=== PATIENT | female | born 1945 | race Caucasian/White ===

== ENCOUNTER → 2017-08-12 | Outpatient (CLI) | payer MEDICARE ==
[~2017-08-12] MED LIST: ARIMIDEX; BENAZEPRIL HCL20 MG OR; CEPHALEXIN 250250 M1 OR; CIPROFLOXACIN500 M1 PO; ELAVIL OR; FELODIPINE 5 MG5 M1 OR; FLEXERIL PO; FLOMAX PO; FOSAMAX 70 MG T70 M1 OR; OMEPRAZOLE20 MG OR; PERCOCET 5-3251 EACH PO
--- NOTE | 2017-08-14 11:21 | PF ---
[address] [address] PULMONARY FUNCTION REPORT Name: DEIDRE PELAEZABEL Val Room: [facility]#: [id number] Admission: 08/12/17 Attend Phys: Melva Peter Discharge: Date of : 43 Report #: [id number] THIS REPORT FOR: //name// CC: Danna [facility] REFERRING PHYSICIAN: Melva Peter. TYPE OF STUDY: Pulmonary function test. SPIROMETRY: The FEV1/FVC ratio was 56% predicted. The FEV1 is 1.55 liters at 86% predicted. Forced vital capacity is 2.77 liters at 115% predicted. Total lung capacity 4.11 liters at 97% predicted, DLCO 55% predicted. IMPRESSION: The above pulmonary function test showed mild obstructive pulmonary defect without positive bronchodilator response, normal lung volumes and slightly decreased DLCO. <ELECTRONICALLY SIGNED> By: Shyann Gallo MD 08/14/17 1121 1202 Ben Gallo MD /nt
--- NOTE | 2017-08-25 12:49 | PF ---
[address] [address] PULMONARY FUNCTION REPORT Name: ELKE PELAEZ Room: [facility]#: [id number] Admission: 08/12/17 Attend Phys: Melva Peter Discharge: Date of : 43 Report #: [id number] THIS REPORT FOR: //name// CC: Danna Peter [facility] TYPE OF STUDY: Pulmonary function test. REFERRING PHYSICIAN: Dr. Melva Peter. SPIROMETRY: FEV1/FVC ratio is 56% predicted. FEV1 was 1.55 liters at 86% of predicted with forced vital capacity 2.77 liters at 115% predicted. There was no positive bronchodilator response. The total lung capacity was 4.11 liters at 97% predicted. The DLCO was 55% of predicted. IMPRESSION: This pulmonary function test demonstrates moderate degree of obstructive pulmonary defect with a borderline low diffusing capacity of the lungs for carbon monoxide and no positive bronchodilator response. <ELECTRONICALLY SIGNED> By: Shyann Gallo MD 08/25/17 1249 [id number] Gallo MD /nt
== END ==
LOC: M.PUL 10:30
DX: M19.011 Primary osteoarthritis, right shoulder (principal); R06.02 Shortness of breath; M41.85 Other forms of scoliosis, thoracolumbar region; M47.894 Other spondylosis, thoracic region; F17.200 Nicotine dependence, unspecified, uncomplicated; W19.XXXA Unspecified fall, initial encounter; X58.XXXA Exposure to other specified factors, initial encounter; Y93.89 Activity, other specified; Y92.89 Other specified places as the place of occurrence of the external cause; Y99.8 Other external cause status

== ENCOUNTER → 2017-09-22 | Outpatient (CLI) | payer MEDICARE ==
[2017-09-22 11:42] LABS: ABSOLUTE MONOCYTES 0.5 thou/uL (0.0-1.2); ABSOLUTE NEUTROPHILS 7.3 thou/uL (1.6-8.1); BASOPHILS 0.2 %; EOSINOPHILS 0.1 %; HEMATOCRIT 38.8 % (37.0-47.0); HEMOGLOBIN 12.5 gm/dL (12.0-15.0); LYMPHOCYTES 38.7 %; MCH 27.5 pg (26.0-34.0); MCHC 32.1 g/dL (28.0-37.0); MCV 85.8 fL (80.0-100.0); MONOCYTES 3.9 %; MPV 7.2 fl. (7.2-11.1); NUCLEATED RBCS 0 /100WBC; PLATELET COUNT* 198 thou/uL (150-400); POLYS 57.1 %; RBC 4.53 mil/uL (4.20-5.00); RDW-CV 26.7 % (10.5-14.5); WBC 12.8 thou/uL (4.0-11.0)
[2017-09-22 11:49] LABS: CALCIUM 8.6 mg/dL (8.5-10.1); CREATININE 0.9 mg/dL (0.6-1.3); POTASSIUM 3.5 mmol/L (3.5-5.1)
[2017-09-22 11:53] LABS: ALBUMIN 3.3 g/dL (3.4-5.0); MAGNESIUM 1.7 mg/dL (1.8-2.4); TOTAL BILIRUBIN 0.3 mg/dL (<0.1-1.0); TOTAL PROTEIN 6.7 g/dL (6.4-8.2)
[2017-09-22 12:17] LABS: ANISOCYTOSIS 2+; PLATELET ESTIMATE ADEQUATE
== END ==
LOC: M.RAD 11:23
PROVIDERS: Family Medicine
DX: M41.84 Other forms of scoliosis, thoracic region (principal); D50.9 Iron deficiency anemia, unspecified; R53.83 Other fatigue; N39.0 Urinary tract infection, site not specified